=== PATIENT | female | born 1990 | race Caucasian/White ===

== ENCOUNTER → 2019-08-22 | Outpatient (CLI) | payer OTHER ==
--- NOTE | 2019-08-23 04:40 | REP ---
Clinical: Anatomical evaluation. Comparison: None available . Findings: Examination demonstrates a single live intrauterine in cephalic presentation. motion is identified by technologist. Placenta is noted anterior and grade zero without evidence for placenta previa or abruption. Amniotic fluid volume is normal. Cervix measures 3.6 cm in length and appears closed. No evidence for nuchal cord. Gestational age by LMP 20 weeks 3 days with JACKIE 01/06/2020 . Gestational age by current measurements 21 weeks 0 days with JACKIE 01/02/2020 . FHR equals 141 beats per minute. BPD 5.1 cm 21 weeks 3 days HC 18.7 cm 21 weeks 0 days AC 16.6 cm 21 weeks 4 days FL 3.4 cm 20 weeks 5 days HL 3.2 cm 20 weeks 5 days HC/AC ratio 1.13 Estimated weight 407 grams ( 75th percentile). Anatomical assessment demonstrates normal structures including cranium, choroid plexus, cavum, cerebellum/posterior fossa, facial features, lungs, four-chamber heart/ventricular outflow tracts, diaphragm, stomach, cord insertion/three-vessel cord, kidneys/bladder, spine, and extremities. Impression: Single live intrauterine in cephalic presentation demonstrating appropriate interval growth. Anatomical assessment is complete and normal. Electronically Signed by Guru Draper MD 08/23/2019 04:31 A
== END ==
LOC: M RAD 09:52
PROVIDERS: ATTEND Advanced Practice Midwife
DX: Z34.82 Encounter for supervision of other normal pregnancy, second trimester (principal); Z3A.21 21 weeks gestation of pregnancy

== ENCOUNTER 2019-10-19 21:09 | Outpatient (CLI) | payer OTHER ==
[~2019-10-19] VITALS: Ht 165.1 cm; Wt 82.1 kg
[2019-10-19 21:55] VITALS: BP 119/71
--- NOTE | 2019-10-19 23:57 | REPVR ---
PROCEDURE INFORMATION: Exam: US , Follow Up, Transabdominal Exam date and time: 10/19/2019 11:22 PM Age: 29 years old Clinical indication: Lmp or gestational age (in weeks): 38w 5d; Other: Decreased movement and soft cervix; ; Additional info: 29yo at 28wk 175/-3, soft cervix and ctx TECHNIQUE: Imaging protocol: US uterus. Follow-up, for example, re-evaluation of size by measuring standard growth parameters and amniotic fluid volume, or re-evaluation of organ systems suspected or confirmed to be abnormal on a previous scan. Real time with image documentation, Transabdominal approach. COMPARISON: US OBS SINGEL GEST 08/22/2019 10:11 AM FINDINGS: GESTATION: Gestation: Single intrauterine fetus. Heart rate: heartbeat of 150 bpm. Presentation: Cephalic presentation. Placenta: Anterior placenta without previa or abruption. Amniotic fluid: Normal YENI of 19.3 cm. Abdomen: The stomach kidneys and bladder are normal. BIOMETRY: Estimated gestational age: The composite gestational age by ultrasound is 28 weeks 6 days. Estimated due date: The EDC is 01/05/2020. Estimated weight: The estimated weight is 1335 grams and is 51 percentile. Biparietal diameter: The BPD measures 7.1 cm suggesting an age of 28 weeks 3 days. Head circumference: The head circumference measures 26.5 cm suggesting an age of 28 weeks 6 days. Abdominal circumference: The abdominal circumference measures 25.5 cm suggesting an age of 29 weeks 5 days. Femur length: The femur length measures 5.4 cm suggesting an age of 28 weeks 3 days. DOPPLER: Umbilical artery Doppler: Cord blood flow demonstrates resistive index of 0.56 and S/D ratio of 2.27. MATERNAL: Cervix: Closed cervix measuring 3.5 cm transvaginal with no funneling. IMPRESSION: 1. Single live intrauterine fetus in cephalic presentation with a composite age of 28 weeks 6 days. The EDC is 01/05/2020. 2. Closed cervix measuring 3.5 cm. Electronically signed by: James Soto On 10/19/2019 23:56:56 PM
[2019-10-20 02:28] LABS: APPEARANCE, URINE CLEAR (CLEAR); BACTERIA, URINE AUTO NEGATIVE (NEGATIVE); BILIRUBIN, URINE AUTO NEGATIVE (NEGATIVE); BLOOD, URINE BLOOD NEGATIVE (NEGATIVE); COLOR, URINE STRAW (YELLOW); GLUCOSE, URINE (UA) AUTO NEGATIVE (NEGATIVE); KETONE, URINE AUTO NEGATIVE (NEGATIVE); LEUKOCYTE ESTERASE, URINE AUTO NEGATIVE (NEGATIVE); NITRITE, URINE AUTO NEGATIVE (NEGATIVE); PROTEIN, URINE AUTO NEGATIVE (NEGATIVE); RBC, URINE AUTO 0 /HPF (0-3); SPECIFIC GRAVITY URINE AUTO 1.002 (1.002-1.035); SQUAMOUS EPITHELIAL CELL UR AU 0 /HPF (0-6); UROBILINOGEN, URINE AUTO 0.2 mg/dL (0.0-2.0); WBC, URINE AUTO 1 /HPF (0-3)
[2019-10-20 05:44] VITALS: BP 103/59
--- NOTE | 2019-10-20 06:25 | IPNPDOC ---
Text Note Date of Service The patient was seen on 10/20/19. NOTE Triage Note Subject: Christi is a 29yo with SIUP at approx 28wk who presented overnight with CC of decreased movement and intermittent lower left abdominal pain that comes and goes. She is not sure if the pains are associated w/ctx or not. Nothing progressively more painful or regular. She has had no LOF, no vaginal bleeding. She notes she did her kick counts but only got 3 or 4 movements in 2 hours. 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 Heart rate: heartbeat of 150 bpm. Presentation: Cephalic presentation. Placenta: Anterior placenta without previa or abruption. Amniotic fluid: Normal YENI of 19.3 cm. Abdomen: The stomach kidneys and bladder are normal. BIOMETRY: Estimated gestational age: The composite gestational age by ultrasound is 28 weeks 6 days. Estimated due date: The EDC is 01/05/2020. Estimated weight: The estimated weight is 1335 grams and is 51 percentile. Biparietal diameter: The BPD measures 7.1 cm suggesting an age of 28 weeks 3 days. Head circumference: The head circumference measures 26.5 cm suggesting an age of 28 weeks 6 days. Abdominal circumference: The abdominal circumference measures 25.5 cm suggesting an age of 29 weeks 5 days. Femur length: The femur length measures 5.4 cm suggesting an age of 28 weeks 3 days. DOPPLER: Umbilical artery Doppler: Cord blood flow demonstrates resistive index of 0.56 and S/D ratio of 2.27. MATERNAL: Cervix: Closed cervix measuring 3.5 cm transvaginal with no funneling. IMPRESSION: 1. Single live intrauterine fetus in cephalic presentation with a composite age of 28 weeks 6 days. The EDC is 01/05/2020. 2. Closed cervix measuring 3.5 cm. Assessment: Christi is a 29yo with SIUP at approx 28wk with NO e/o PTL and reassuring status despite patient perceiving DFM. Her cervix was unexpectedly 1/thick/high on SSE, but all other assessments were reassuring. Cervix is 3.5cm in length on formal ultrasound. SCE was unchanged over >6hr. [place] showed no regular ctx pattern. Urinalysis negative. She does have bacterial vaginosis by clue cells on wet prep. YENI 19cm with Cat I FHRT. Plan: -Safe for discharge home -Rx flagyl 500mg PO BID x7 days (paper script given to patient) -Keep next regularly scheduled OB visit -Discussed return precautions Dr. Leticia Wadsworth MD VS,Stanislav, I+O VS, [place], I+O Vital Signs Date Time Temp Pulse Resp B/P (MAP) Pulse Ox O2 Delivery O2 Flow Rate FiO2 10/19/19 21:55 97.9 87 119/71 (87) Leticia Wadsworth MD Oct 20, 2019 06:17
== END 2019-10-20 06:30 | disposition home or self-care (01) ==
LOC: M LDO 21:09
PROVIDERS: ATTEND Obstetrics & Gynecology
DX: O36.8130 Decreased fetal movements, third trimester, not applicable or unspecified (principal); Z3A.38 38 weeks gestation of pregnancy
CPT/HCPCS: 59025; 76816; 76817; 76820; 81001; 87210; G0378; G0463

== ENCOUNTER 2019-11-01 07:23 | Outpatient (CLI) | payer OTHER ==
[~2019-11-01] VITALS: Ht 165.1 cm; Wt 83.3 kg
[2019-11-01] MEDS ORDERED: PRENTAB9 PO (07:43)
[2019-11-01 07:48] VITALS: BP 93/53
[2019-11-01 09:35] VITALS: BP 88/53
[2019-11-01] MEDS ORDERED: LACTATED RINGER'S 1000 ML IV STA (12:17)
[2019-11-01] MEDS ORDERED: LR 1,000 ML IV SCH (12:17)
[2019-11-01 12:22] VITALS: BP 102/58
[2019-11-01 13:21] LABS: HEMATOCRIT 31.1 % (36.0-47.0); HEMOGLOBIN 9.8 g/dl (12.0-15.5); MEAN CORPUSCULAR HEMOGLOBIN 26.6 pg (27.0-33.0); MEAN CORPUSCULAR HGB CONC 31.5 g/dl (32.0-36.5); MEAN CORPUSCULAR VOLUME 84.5 fl (80.0-96.0); PLATELET COUNT, AUTOMATED 257 10^3/uL (150-450); RED BLOOD COUNT 3.68 10^6/uL (4.00-5.40); WHITE BLOOD COUNT 11.1 10^3/uL (4.0-10.0)
[2019-11-01 13:31] LABS: INR 1.05; PARTIAL THROMBOPLASTIN TIME 25.2 SECONDS (25.0-38.4); PROTHROMBIN TIME 13.5 SECONDS (11.8-14.0)
--- NOTE | 2019-11-01 13:45 | REP ---
A limited obstetric sonography: History: Vaginal bleeding. Evaluate placenta. 30-week gestation. Findings: Scanning demonstrates a living single intrauterine gestation in a cephalic lie. motion is observed and heart rate is recorded at 152 beats per minute. Closed cervical length is measured at 3.0 cm viewed transvaginally. No funneling is seen in the cervix. Amniotic fluid is subjectively normal. YENI is normal at 15.3 cm. The SD ratio is normal at 3.49. Placenta is anterior grade 2 zero. Electronically Signed by Kenny Lepe MD 11/01/2019 01:36 P
[2019-11-01 14:46] VITALS: BP 95/54
[2019-11-01] MEDS ORDERED: BETAMETHASONE SOLUSPAN 6MG/ML INJ 5ML (J0702) IM ONE (15:00)
--- NOTE | 2019-11-01 17:09 | IPNPDOC ---
Text Note Date of Service The patient was seen on 11/01/19. NOTE Triage Note Subject: Christi is a 29yo with SIUP at approx 30wk who presents this morning for CC of vaginal bleeding. She states around 0500 this morning she woke up to a sensation of wetness, thought it might be urine, but when she checked in the bathroom it was blood that soaked through her underwear. More fell into the toilet and then she had a bit more on a panty liner afterwards. No intercourse for the last few days. No trauma or other inciting event. No loss of fluid, feels good movement. Thinks she may have felt some contractions, but nothing strong or progressive. I evaluated Christi previously on Oct when she presented for LLQ pain and DFM. In the workup I determined she had BV and treated her with flagyl. Interestingly, I also did SCE at that time which was 1/thick/high and sent her for cervical length which was 3.5cm. I re-checked her after nearly 6 hours and she was unchanged. However, the cervix was softer than normally observed at this gestational age and also 1cm dilated. 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 Unchanged 6hr later. FHRM reassuring for gestational age w/+accels, -decels, mod tito [place]: regular ctx q5min that spaced out to occasional with IVF Labs: H/H 9.8/31.1, plt 257 PTT 25.2, PT 13.5, INR 1.05 fibrinogen 413 Radiology: TVUS and limited TAUS from today 11/01/2019 Findings: Scanning demonstrates a living single intrauterine gestation in a cephalic lie. motion is observed and heart rate is recorded at 152 beats per minute. Closed cervical length is measured at 3.0 cm viewed transvaginally. No funneling is seen in the cervix. Amniotic fluid is subjectively normal. YENI is normal at 15.3 cm. The SD ratio is normal at 3.49. Placenta is anterior grade 2 zero. TVUS and Growth scan FROM PRIOR VISIT on 10/19/2019: FINDINGS: GESTATION: Gestation: Single intrauterine fetus. Heart rate: heartbeat of 150 bpm. Presentation: Cephalic presentation. Placenta: Anterior placenta without previa or abruption. Amniotic fluid: Normal YENI of 19.3 cm. Abdomen: The stomach kidneys and bladder are normal. BIOMETRY: Estimated gestational age: The composite gestational age by ultrasound is 28 weeks 6 days. Estimated due date: The EDC is 01/05/2020. Estimated weight: The estimated weight is 1335 grams and is 51 percentile. Biparietal diameter: The BPD measures 7.1 cm suggesting an age of 28 weeks 3 days. Head circumference: The head circumference measures 26.5 cm suggesting an age of 28 weeks 6 days. Abdominal circumference: The abdominal circumference measures 25.5 cm suggesting an age of 29 weeks 5 days. Femur length: The femur length measures 5.4 cm suggesting an age of 28 weeks 3 days. DOPPLER: Umbilical artery Doppler: Cord blood flow demonstrates resistive index of 0.56 and S/D ratio of 2.27. MATERNAL: Cervix: Closed cervix measuring 3.5 cm transvaginal with no funneling. IMPRESSION: 1. Single live intrauterine fetus in cephalic presentation with a composite age of 28 weeks 6 days. The EDC is 01/05/2020. 2. Closed cervix measuring 3.5 cm. Assessment: Christi is a 29yo with SIUP at approx 30wk with painless vaginal bleeding. NO evidence of imminent labor. SCE remains 1/thick/high, unchanged from prior exam on 10/19. [place] showed ctx initially that were resolved with IV hydration. TVUS shows cervical length 3.0 which is small change from prior 3.5cm two weeks ago. Reassuring assessment. Abruption labs normal with exception of H/H, pt is taking iron/vit C for previously dx'ed anemia. TAUS shows normal YENI and placenta. Plan: -Discharge to home -Patient given strict return precautions to return for bright red bleeding, heavy bleeding, persistent/progressive ctx, LOF, DFM or anything pt finds concerning -Plan to return to L&D tomorrow for 2nd dose of betamethasone 12mg IM Dr. Leticia Wadsworth MD VS,Reymundo [place]+O VSStanislav I+O Vital Signs Date Time Temp Pulse Resp B/P (MAP) Pulse Ox O2 Delivery O2 Flow Rate FiO2 11/01/19 07:48 99.2 18 93/53 (66) Leticia Wadsworth MD Nov 01, 2019 08:21
== END 2019-11-01 16:22 | disposition home or self-care (01) ==
LOC: M LDO 07:23
PROVIDERS: ATTEND Obstetrics & Gynecology
DX: O26.853 Spotting complicating pregnancy, third trimester (principal); Z3A.30 30 weeks gestation of pregnancy
CPT/HCPCS: 36415; 59025; 76815; 76817; 85027; 85384; 85610; 85730; 86900; 86901; 96360; 96361; 96372; G0378; G0463; J0702

== ENCOUNTER 2019-11-02 14:35 | Outpatient (CLI) | payer OTHER ==
[~2019-11-02] VITALS: Ht 165.1 cm; Wt 86.0 kg
[~2019-11-02 14:35] MED LIST: PRENTAB9 PO
[2019-11-02 14:48] VITALS: BP 107/55
[2019-11-02] MEDS ORDERED: BETAMETHASONE SOLUSPAN 6MG/ML INJ 5ML (J0702) IM ONE (15:00)
--- NOTE | 2019-11-02 17:45 | HPE ---
DATE OF ADMISSION: 11/02/2019 HISTORY: This lady is a 29-year-old 2, para 1, 30 weeks plus gestation who was seen yesterday for vaginal bleeding and she had some contractions, but not progressive or strong. She was originally evaluated on 10/19/2019, had a cervical length of 3.5 and she was then reevaluated 68 hours later. There was no change. She was approximately 1 cm dilated. Yesterday when she came in, she was evaluated and the cervix was 3.5 cm, single live intrauterine (IUP) and she had a normal amniotic fluid index (YENI). She was given precautions and was given betamethasone 12 mg to be followed up the next 24 hours with a second dose of betamethasone. So, on 11/02/2019, the patient was seen for second dose of betamethasone, denied any contractions, vaginal bleeding or discharge. Blood pressure 107/55, respirations are 18, pulse 89, temperature 98.2. She was given her injection. She was given precautions. She has an appointment with Anton SHAHID for monitoring and cervical evaluation. On evaluation, she had a nonstress test which showed no contractions, moderate variability, no decelerations were noted and the patient was then discharged to followup in the office at a regular interval. The patient expressed understanding of the plan of care.
== END 2019-11-02 15:48 | disposition home or self-care (01) ==
LOC: M LDO 14:35
PROVIDERS: ATTEND Obstetrics & Gynecology
DX: O26.853 Spotting complicating pregnancy, third trimester (principal); Z3A.30 30 weeks gestation of pregnancy
CPT/HCPCS: 96372; G0378; G0463; J0702